=== PATIENT | female | born 1965 | race Caucasian/White ===

== ENCOUNTER 2021-08-27 17:36 | Emergency (ER) | payer BC ==
[2021-08-27 17:49] VITALS: BP 137/94; PULSE 96; TEMP 98.6; BMI 25.2
[2021-08-27] MEDS ORDERED: SODIUM CHLORIDE 1,000 ML IV STA (18:26)
[2021-08-27] MEDS ORDERED: KETOROLAC TROMETHAMINE 30 MG/1 ML VIAL IVPUSH ONE (18:26)
[2021-08-27] MEDS ORDERED: DEXAMETHASONE SOD PHOSPHATE 10 MG/1 ML VIAL IVPUSH ONE (18:27)
[2021-08-27] MEDS ORDERED: KETOROLAC TROMETHAMINE 30 MG/1 ML VIAL ONE (18:34)
[2021-08-27] MEDS ORDERED: DEXAMETHASONE SOD PHOSPHATE 10 MG/1 ML VIAL ONE (18:48)
== END 2021-08-27 19:38 | disposition home or self-care (01) ==
LOC: FER 17:36
PROC: 3E033GC Introduction of Other Therapeutic Substance into Peripheral Vein, Percutaneous Approach (ICD-10-PCS; principal; 2021-08-27)
DX: U07.1 COVID-19 (principal)
CPT/HCPCS: 99284-25; J1100